=== PATIENT | female | born 1945 | race Caucasian/White ===

== ENCOUNTER 2025-03-23 15:48 | Emergency (ER) | payer MEDICARE, SELFPAY ==
[2025-03-23 15:51] VITALS: BP 133/83
[2025-03-23 16:14] LABS: % Basophils 0.8 % (0-2); % Eosinophils 0.3 % (0-6); % Immature Granulocytes 0.3 % (0-0.5); % Lymphocytes 11.4 % (20.5-51.1); % Monocytes 4.9 % (1.7-9.3); % Neutrophils 82.3 % (42.2-75.2); Absolute Basophils 0.1 10^3/uL (0-0.2); Absolute Lymphocytes 1.2 10^3/uL (1.2-3.4); Absolute Monocytes 0.5 10^3/uL (0.1-0.6); Absolute Neutrophils 8.6 10^3/uL (1.4-6.5); Hematocrit 39.1 % (37.0-47.0); Hemoglobin 13.2 g/dL (12.0-16.0); Mean Corp Hgb Conc. 33.8 g/dL (33.0-37.0); Mean Corpuscular Hgb 30.7 pg (27.0-31.0); Mean Corpuscular Volume 90.9 fL (81.0-99.0); Mean Platelet Volume 9.7 fL (7.4-10.4); Nucleated Red Blood Cells % 0 %; Platelet Count 259 10^3/uL (130-400); Red Cell Dist. Width 13.1 % (11.5-14.5); White Blood Cell Count 10.4 10^3/uL (4.8-10.8)
[2025-03-23 16:29] LABS: ALT (SGPT) 13 U/L (0-35); AST (SGOT) 24 U/L (14-36); Albumin 4.3 g/dl (3.5-5.0); Alkaline Phosphatase 74 U/L (38-126); Blood Urea Nitrogen 16 mg/dl (7-17); Calcium 9.6 mg/dl (8.4-10.2); Carbon Dioxide 28 mmol/L (22-30); Chloride 103 mmol/L (98-107); Glucose 125 mg/dl (70-99); Lipase 44 U/L (23-300); Potassium 4.1 mmol/L (3.5-5.1); Sodium 137 mmol/L (135-145); Total Bilirubin 0.5 mg/dl (0.2-1.3); Total Protein 7.3 g/dl (6.3-8.2); eGFR > 60.00
[2025-03-23 16:53] VITALS: BP 141/104
[2025-03-23 17:00] VITALS: BP 133/81
--- NOTE | 2025-03-23 17:00 | ED.GENMED ---
History of Present Illness
General
Chief Complaint: Abdominal Symptoms
Time Seen by Provider: 03/23/25 17:00
History of Present Illness
History of Present Illness:
REVIEW OF OLD RECORDS
- Patient came in by ambulance from [facility] due to lower abdominal pain and back pain. The patient was last here in the Emergency Department in 2018 with an abrasion and the patient had a colonoscopy in 2014.
CHIEF COMPLAINT(S)
Abdominal pain
HISTORY OF PRESENT ILLNESS
The patient is an 79-year-old female presenting with sudden, severe abdominal pain that started abruptly around 11:30 AM after returning home from water aerobics. The patient mentioned having had a smoothie with three fresh strawberries for lunch
the previous day. The patient describes the pain as tender to touch and located on the right side, which has been intermittently experienced for months, but notes that todays pain is different from previous episodes. The current pain does not
radiate to the back. Upon examination, there is tenderness on palpation of the right side. The patient reports that she feels 'heat' in the area and is currently experiencing tenderness without significant pain.
PHYSICAL EXAM
- Abdomen: Very mild tenderness noted on palpation of the right side.
- General: Well appearing in no distress
- HEENT: Moist oral mucosa
- Cardiovascular: No murmurs, normal heart rate, regular rhythm, No chest wall tenderness
- Pulmonary: No respiratory distress, breath sounds are clear and equal
- Neurologic: Excellent strength all extremities, no coordination deficits
- Psychiatric: Appropriate mental status, normal insight and judgement
- Extremities: Nontender, no edema, moves all extremities equally
- Skin: No rash, no lesions
PROBLEM LIST
Acute:
- Abdominal pain
PLAN
1. Proceed with a computerized tomography scan of the abdomen with intravenous contrast to rule out any serious underlying conditions.
2. Monitor and await results from radiology.
3. Advising the patient regarding timelines, estimating discharge or further action likely in two hours.
DIFFERENTIAL DIAGNOSIS
The Differential Diagnosis includes, in no particular order and is not limited to:
1. Cholecystitis
2. Appendicitis
3. Pancreatitis
4. Diverticulitis
5. Kidney stones
6. Peptic ulcer disease
7. Abdominal aortic aneurysm
8. Gastroenteritis
9. Small bowel obstruction
10. Mesenteric ischemia
RADIOLOGY
- CT imaging obtained
EKG
- Not indicated
LABS
- CBC including white count is normal, chemistries unremarkable, lipase normal
CARE-UPDATE
03/23/25 - 20:12
CAT scan results are unremarkable, with no signs of any severe conditions such as an aortic aneurysm or obstruction. The patient reports intermittent burning pain on the right side, possibly related to intestinal spasms. Advised that while keeping a
pain diary is not deemed necessary, it could be helpful if symptoms persist or worsen. The patient is being discharged to [facility] with plans for daughter to facilitate transport. Encouraged to return if symptoms become concerning.
Past History
Past History
ED Past Medical History: None
Phy Exam
Physical Exam
Physical Exam:
See HPI
Course
Orders/Labs/Results
Orders:
Orders
03/23/25 15:53
IV Insert/Care/Rem.- Treatment PRN
03/23/25 16:05
Complete Blood Count/With Diff Urgent
Comprehensive Metabolic Panel Urgent
Lipase Urgent
03/23/25 17:13
CT Abd/pelvis W Iv Cont Urgent
Comment:
Reason For Exam: abd/back pain
03/23/25 17:18
Electrocardiogram (*1) Urgent
Reason for Study: Abdominal Pain
EKG- Treatment ONCE
Abnormal Lab Results
03/23/25
16:05
Absolute Neuts (auto) 8.6 H 10^3/uL
(1.4-6.5)
Neutrophils % 82.3 H %
(42.2-75.2)
Lymphocytes % 11.4 L %
(20.5-51.1)
Glucose 125 H mg/dl
(70-99)
03/23/25 16:05
03/23/25 16:05
Vital Signs
Initial and Last Documented VS:
Initial Vital Signs
Temp Pulse Resp BP Pulse Ox
36.9 C 82 18 133/83 99
03/23/25 15:51 03/23/25 15:51 03/23/25 15:51 03/23/25 15:51 03/23/25 15:51
Last Documented Vital Signs
Temp Pulse Resp BP Pulse Ox
36.9 C 69 14 133/81 97
03/23/25 15:51 03/23/25 17:45 03/23/25 17:15 03/23/25 17:00 03/23/25 17:45
*Pulse Oximetry
Patient hypoxic: no (98% on room air)
Comment: Normal
*Critical Care Note
Total Time (30-74mins, 75-104mins- exclusive of procedures): Not Applicable
ED Attending Note
-
Portions of this chart may have been created with voice recognition software.� Occasional wrong word or��sound alike� substitutions may have occurred due to the inherent limitations of voice recognition software.
Discharge Plan
Departure
Referrals:
Willie Grijalva MD [Family Provider, Internal Medicine]
Interventions
Interventions:
*Risk Screen - Suicide Last Done: 03/23/25 15:51
*General Assessment Last Done: 03/23/25 17:29
*Neglect/Abuse Screening Last Done: 03/23/25 15:51
*ED- Fall Risk Assessment Last Done: 03/23/25 17:29
*ED COVID-19 Vaccine History Last Done: 03/23/25 17:29
DD-Jqoanc-Fgkrxyveqs Assessment Last Done: 03/23/25 17:00
Discharge Date and Time
Print Language: ESTONIAN
[2025-03-23 17:28] VITALS: BMI 24.7
[2025-03-23 19:00] VITALS: BP 155/88
[2025-03-23 20:55] VITALS: BP 138/83
== END 2025-03-23 20:59 | disposition home or self-care (01) ==
LOC: EMR 15:48
PROVIDERS: EMERGENCY PHYSICIAN Emergency Medicine; FAMILY PHYSICIAN Internal Medicine Geriatric Medicine
DX: R10.30 Lower abdominal pain, unspecified (principal); M54.9 Dorsalgia, unspecified
CPT/HCPCS: 99284; 74177; 80053; 83690; 85025; 93005; Q9967